=== PATIENT | male | born 1970 ===

== ENCOUNTER 2018-06-21 09:08 | Emergency (ER) | payer OTHER ==
[2018-06-21 09:43] VITALS: BMI 34.2
--- NOTE | 2018-06-21 10:05 | RAD ---
HISTORY: HTN COMPARISON: No prior. TECHNIQUE: Chest, one view. FINDINGS: LUNGS: Examination limited by habitus and hypoinflation. No focal consolidation. 4 mm left mid lung zone calcified granuloma. Please note that chest x-ray has limited sensitivity for the detection of pulmonary masses. PLEURA: No significant pleural effusion identified. No definite pneumothorax . CARDIOVASCULAR: Enlargement of the cardiomediastinal silhouette. Ectatic aorta. Atherosclerotic calcifications of the aorta. OSSEOUS STRUCTURES: Degenerative changes. VISUALIZED UPPER ABDOMEN: Unremarkable. OTHER FINDINGS: None. IMPRESSION: Hypoinflation. Enlargement of the cardiomediastinal silhouette. Ectatic aorta. Atherosclerotic calcifications of the aorta. Calcified granuloma, left mid lung zone.
--- NOTE | 2018-06-21 10:18 | ED PDOC ---
Arrival/HPI - General Chief Complaint: High Blood Pressure Time Seen by Provider: 06/21/18 09:18 Historian: Patient - History of Present Illness Narrative History of Present Illness (Text): 06/21/18 10:11 48 yo M w/ PMH of DM and newly diagnosed HTN, presents c/o high bp. States that he was sent to the ER for high bp. States that he went to a clinic in [place] at the beginning of this month and was Rx lisinopril 10 mg by his doctor for high bp. He adds that he was at the wound care center today for evaluation and his bp was noted to be elevated. He reports that he is running out of his Rx for lisinopril and only has 1 tab left, he took his last dose of medication at 6 am. Reports no headache, dizziness, fever, CP, SOB, N/V, abdominal pain, back pain. Has no other complaints. PMD clinic Past Medical History - Cardiac Hx Cardiac Disorders: No - Pulmonary Hx Respiratory Disorders: No - Neurological Hx Neurological Disorder: No - HEENT Hx HEENT Disorder: No - Renal Hx Renal Disorder: No - Endocrine/Metabolic Hx Endocrine Disorders: No - Hematological/Oncological Hx Blood Disorders: No - Integumentary Hx Dermatological Disorder: No - Musculoskeletal/Rheumatological Hx Musculoskeletal Disorders: No Hx Falls: No - Gastrointestinal Hx Gastrointestinal Disorders: No - Genitourinary/Gynecological Hx Genitourinary Disorders: No - Psychiatric Hx Psychophysiologic Disorder: No Hx Substance Use: No - Anesthesia Hx Anesthesia: No Hx Anesthesia Reactions: No Family/Social History Family/Social History: No Known Family HX Smoking Status: Never Smoked Hx Alcohol Use: No Hx Substance Use: No Allergies/Home Meds Allergies/Adverse Reactions: Allergies No Known Allergies Allergy (Verified 06/21/18 09:44) Home Medications: Home Meds Medication Instructions Recorded Confirmed Lisinopril [Zestril] 10 mg PO DAILY 06/21/18 06/21/18 Nystatin [Mycostatin Oint] 1 unit TP DAILY 06/21/18 06/21/18 Review of Systems - Review of Systems Constitutional: absent: Fatigue, Fevers Respiratory: absent: SOB, Cough Cardiovascular: absent: Chest Pain, Palpitations Gastrointestinal: absent: Abdominal Pain, Diarrhea, Vomiting Genitourinary Male: absent: Dysuria, Frequency Musculoskeletal: absent: Arthralgias, Back Pain Skin: Rash. absent: Pruritis, Skin Lesions Neurological: absent: Headache, Dizziness, Focal Weakness Physical Exam Vital Signs Temp Pulse Resp BP Pulse Ox 06/21/18 09:57 65 169/105 H 06/21/18 09:44 98.0 F 60 18 97 06/21/18 09:26 98.1 F 62 18 169/105 H 97 Temperature: Afebrile Blood Pressure: Hypertensive Pulse: Regular Respiratory Rate: Normal Appearance: Positive for: Well-Appearing, Non-Toxic, Comfortable Pain Distress: None Mental Status: Positive for: Alert and Oriented X 3 - Systems Exam Head: Present: Atraumatic, Normocephalic Pupils: Present: PERRL Extroacular Muscles: Present: EOMI Conjunctiva: Present: Normal Mouth: Present: Moist Mucous Membranes Neck: Present: Normal Range of Motion Respiratory/Chest: Present: Clear to Auscultation, Good Air Exchange. No: Respiratory Distress, Accessory Muscle Use Cardiovascular: Present: Regular Rate and Rhythm, Normal S1, S2. No: Murmurs Abdomen: No: Tenderness, Distention, Peritoneal Signs Back: Present: Normal Inspection Upper Extremity: Present: Normal Inspection. No: Cyanosis, Edema Lower Extremity: Present: Normal Inspection. No: Edema Neurological: Present: GCS=15, CN II-XII Intact, Speech Normal, Motor Func Grossly Intact, Normal Sensory Function Skin: Present: Warm, Dry, Normal Color. No: Rashes Psychiatric: Present: Alert, Oriented x 3, Normal Insight, Normal Concentration Medical Decision Making ED Course and Treatment: 06/21/18 10:10 Plan : - IV - Labs - UA - EKG - CXR - Lisinopril 10 mg PO EKG : NSR at 61 bpm, no acute ST changes. CXR : IMPRESSION: Hypoinflation. Enlargement of the cardiomediastinal silhouette. Ectatic aorta. Atherosclerotic calcifications of the aorta. Calcified granuloma, left mid lung zone. As read by Dr. Broussard. Labs reviewed and wnl. On reevaluation, patient is smiling in good spirits, states that he feels well without CP, SOB, abdominal pain or back pain. On exam, patient remains awake alert and oriented 3 in no acute distress. VS P 68 O2sat 98%RA BP 143/61. Based on history, exam and diagnostic results plan will be for outpatient follow up. Lab and CXR findings d/w the patient in great detail. Patient made aware of the enlarged cardiomediastinal silhouette, ectatic aorta and of granuloma to the L mid lung. Advised that he must follow up these results with his pmd and advised of the importance of BP control. Patient advised and is in agreement of increasing his dose of his lisinopril to 20 mg for adequate bp control and to follow up with his pmd regarding his bp. Advised to follow up with primary care physician in 1-2 days without fail. Advised to take medication as prescribed. Return to the emergency room at any time for any new or worsening symptoms. Patient states he fully agrees with and understands discharge instructions. States that he agrees with the plan and disposition. Verbalized and repeated discharge instructions and plan. I have given the patient opportunity to ask any additional questions. - RAD Interpretation Radiology Orders: 06/21/18 09:39 CHEST PORTABLE [RAD] Stat - Medication Orders Current Medication Orders: Discontinued Medications Lisinopril (Zestril) 10 mg PO STAT STA Stop: 06/21/18 09:42 Last Admin: 06/21/18 09:57 Dose: 10 mg [facility] Pulse and Blood Pressure Document 06/21/18 09:57 [email or web address] (Rec: 06/21/18 09:58 [email or web address] [id number]) Pulse Pulse Rate (60-90) 65 Blood Pressure Blood Pressure (100/60-150/90) 169/105 - PA / GLASS CUT OFF SUPERVISOR / Resident Statement MD/DO has reviewed & agrees with the documentation as recorded. Disposition/Present on Arrival - Present on Arrival Any Indicators Present on Arrival: No History of DVT/PE: No History of Uncontrolled Diabetes: No Urinary Catheter: No History of Decub. Ulcer: No History Surgical Site Infection Following: None - Disposition Have Diagnosis and Disposition been Completed?: Yes Diagnosis: Uncontrolled hypertension Disposition: HOME/ ROUTINE Disposition Time: 11:30 Patient Plan: Discharge Patient Problems: Current Active Problems Problem Status Onset Uncontrolled hypertension Acute Condition: STABLE Discharge Instructions (ExitCare): High Blood Pressure (DC), Low Salt Diet, Controlling Your Blood Pressure Through Lifestyle Print Language: URDU Additional Instructions: Thank you for letting us take care of your child today. Your child was treated for uncontrolled hypertension. The emergency medical care your child received today was directed at the acute symptoms. If prescriptions were provided to you, please fill it and give as directed. It may take several days for the symptoms to resolve. Return to the Emergency Department if symptoms worsen, do not improve, or if any other problems arise. Please contact your websphere portal developer in 2 days for re-evaluaion and follow up. Bring any paperwork you were given at discharge, along with any medications your child is taking to the follow up visit. Our treatment cannot replace ongoing medical care by a primary care provider (PCP) outside of the emergency department. Thank you for allowing the [email or web address] team to be part of your rambo care today. FOLLOW UP CHEST XRAY RESULT WITH YOUR DOCTOR WITHOUT FAIL CXR : IMPRESSION: Hypoinflation. Enlargement of the cardiomediastinal silhouette. Ectatic aorta. Atherosclerotic calcifications of the aorta. Calcified granuloma, left mid lung zone. As read by Dr. Broussard. Prescriptions: Lisinopril [Zestril] 20 mg PO DAILY #30 tab Forms: [employer] ([place] Islander)
[2018-06-21 10:24] VITALS: O2SAT 98
[2018-06-21 10:35] LABS: BASO # 0.01 K/mm3 (0.0-2.0); BASO % 0.2 % (0.0-3.0); EOS # 0.2 (0.0-0.7); GRAN # 3.25 (1.4-6.5); GRAN % 60.7 % (50.0-68.0); HEMOGLOBIN 12.4 g/dL (14.0-18.0); LYMPH # 1.6 (1.2-3.4); LYMPH % 29.9 % (22.0-35.0); MEAN CELL VOLUME 82.9 fl (80.0-105.0); MEAN CORPUSCULAR HEMOGLOBIN 26.9 pg (25.0-35.0); MEAN CORPUSCULAR HGB CONC 32.5 g/dl (31.0-37.0); MONO # 0.3 (0.1-0.6); MONO % 6.2 % (1.0-6.0); RBC 4.61 10^6/uL (3.5-6.1); RED CELL DISTRIBUTION WIDTH 13.7 % (11.5-14.5); WHITE BLOOD COUNT 5.4 10^3/uL (4.5-11.0)
[2018-06-21 10:44] LABS: ALT/SGPT 11 U/L (7-56); AST/SGOT 28 U/L (17-59); BLOOD UREA NITROGEN 9 mg/dL (7-21); GFR NON-AFRICAN AMERICAN > 60
[2018-06-21 10:49] LABS: INR 1.02; PARTIAL THROMBOPLASTIN TIME 27.9 Seconds (25.1-36.5); PROTHROMBIN TIME 11.7 SECONDS (9.4-12.5)
[2018-06-21 10:55] LABS: TROPONIN I < 0.01 ng/mL
[2018-06-21 11:00] VITALS: BP 143/61; TEMP 98.2
--- NOTE | 2018-06-21 11:35 | CARD ---
APPROVED REPORT Date of service: 06/21/2018 EKG Measurement Heart [id number] <Conclusion> Normal sinus rhythm Voltage criteria for left ventricular hypertrophy
[2018-06-21 11:56] VITALS: PULSE 60; RESP 18
[2018-06-21 11:56] LABS: URINE APPEARANCE CLEAR (CLEAR); URINE BILIRUBIN NEGATIVE (NEGATIVE); URINE BLOOD NEGATIVE (NEGATIVE); URINE COLOR YELLOW (YELLOW); URINE GLUCOSE (UA) NEGATIVE (NEGATIVE); URINE LEUKOCYTE ESTERASE NEGATIVE Leu/uL (NEGATIVE); URINE PROTEIN NEGATIVE mg/dL (<30 mg/dL); URINE UROBILINOGEN 0.2 E.U./dL (<1 E.U./dL)
--- NOTE | 2018-06-22 10:05 | CARD ---
APPROVED REPORT Date of service: 06/21/2018 EKG Measurement Heart [id number] <Conclusion> Marked sinus bradycardia LVH by voltage No change except slower rate
== END 2018-06-21 11:56 | disposition home or self-care (01) ==
LOC: ED 09:08
DX: I10 Essential (primary) hypertension (principal); E11.9 Type 2 diabetes mellitus without complications